=== PATIENT | male | born 1960 | race Caucasian/White ===

== ENCOUNTER 2020-12-01 18:47 | Emergency (ER) | payer SELFPAY ==
[~2020-12-01] VITALS: Ht 180.3 cm; Wt 72.6 kg
[2020-12-01] MEDS ORDERED: phenytoin SODIUM IV 1,000 MG in IV NS 0.9% 100 ML IV ONE (19:00)
--- NOTE | 2020-12-01 19:01 | NUR ---
[id number]. WITNESSED SZ 30-60SEC "UPPER BODY TONIC CLONIC" -HT. HAVENT BEEN YR. THE PATIENT IS ALERT AND ORIENTED X3. IN ROOM AIR AND DENIES SOB. RESPIRATION REGULAR AND UNLABORED. ATTACHED TO THE MONITOR. WARM BLANKET PROVIDED FOR COMFORT. WILL CONTINUE TO MONITOR THE PATIENT.
--- NOTE | 2020-12-01 19:15 | NUR ---
the patient is taken to ct
[2020-12-01 19:20] LABS: BASOPHILS # (AUTO) 0.1 K/uL (0.0-0.2); BASOPHILS % (AUTO) 0.7 % (0.0-2.0); EOSINOPHILS % (AUTO) 1.9 % (0.0-6.0); HEMATOCRIT 43 % (39-51); HEMOGLOBIN 14.9 g/dL (13.5-17.5); LYMPHOCYTES # (AUTO) 2.9 K/uL (0.8-4.8); LYMPHOCYTES % (AUTO) 32.7 % (20.0-44.0); MEAN CORPUSCULAR HGB CONC 34 g/dl (31.0-36.0); MEAN CORPUSCULAR VOLUME 97 fL (80-96); MONOCYTES # (AUTO) 0.8 K/uL (0.1-1.30); MONOCYTES % (AUTO) 8.6 % (2.0-12.0); NEUTROPHILS % (AUTO) 56.1 % (43.0-81.0); PLATELET COUNT (AUTO) 265 K/uL (150-450); RED BLOOD CELL COUNT(AUTO) 4.48 MIL/uL (4.5-6.0); WHITE BLOOD COUNT (AUTO) 8.9 K/uL (4.3-11.0)
--- NOTE | 2020-12-01 19:24 | NUR ---
the patient is back from ct
--- NOTE | 2020-12-01 19:30 | NUR ---
rec'd report from mayra ivory for aung
[2020-12-01 19:39] LABS: CALCIUM, SERUM 9.4 mg/dL (8.5-10.1); CREATININE 1.2 mg/dL (0.6-1.3); POTASSIUM 4.4 mmol/L (3.5-5.1)
[2020-12-01 19:44] LABS: ALBUMIN 3.7 g/dL (3.4-5.0); BILIRUBIN,DIRECT 0.1 mg/dL (0.0-0.2); BILIRUBIN,TOTAL 0.4 mg/dL (0.2-1.0); TOTAL PROTEIN, SERUM 7.7 g/dL (6.4-8.2)
--- NOTE | 2020-12-01 19:45 | NUR ---
PT UNABLE TO TOLERATE IV MD SADE AWARE.
[2020-12-01] MEDS ORDERED: PHENYTOIN EXTENDED RELEASE 100 MG CAPSULE PO ONE ×2 (20:00)
[2020-12-01] MEDS ORDERED: PHEN100C4 PO (20:00)
--- NOTE | 2020-12-01 20:11 | NUR ---
Patient discharged to home in stable condition. Written and verbal after care instructions given. Patient verbalizes understanding of instruction. IV removed. Catheter intact and site benign. Pressure and 4x4 applied to site. No bleeding noted. Pt ambulatory with a steady gait
[2020-12-01 20:27] VITALS: BP 128/80
== END 2020-12-01 20:11 | disposition home or self-care (01) ==
LOC: ER 18:52
DX: G40.909 Epilepsy, unspecified, not intractable, without status epilepticus (principal); I10 Essential (primary) hypertension; F17.200 Nicotine dependence, unspecified, uncomplicated; Z59.0 Homelessness; Z79.899 Other long term (current) drug therapy
CPT/HCPCS: 36415; 70450; 80048; 80076; 85025; 96365; 99284; J1165; J7030; J7040